=== PATIENT | male | born 1985 | race African-American/Black ===

== ENCOUNTER 2016-08-02 11:46 | Emergency (ER) | payer OTHER ==
[~2016-08-02] VITALS: Ht 180.3 cm; Wt 95.2 kg
[2016-08-02 15:28] VITALS: BP 128/84
== END 2016-08-02 15:28 | disposition home or self-care (01) ==
LOC: ED 11:46
DX: J45.901 Unspecified asthma with (acute) exacerbation (principal); J20.9 Acute bronchitis, unspecified
CPT/HCPCS: J7512; J7613

== ENCOUNTER 2016-09-10 12:12 | Emergency (ER) | payer OTHER ==
[2016-09-10 17:14] LABS: BASOPHIL % 0.7 % (0-2); PLATELET COUNT 225 x10^3mcL (130-400); RED CELL DISTRIBUTION WIDTH 13.6 % (11.5-14.5)
[2016-09-10 17:28] LABS: CALCIUM 9.3 mg/dL (8.5-10.1); CARBON DIOXIDE 26.6 mmol/L (21-32); CHLORIDE SERUM 101 mmol/L (98-107); CREATININE SERUM 1.1 mg/dL (0.7-1.3); GFR1 > 60 mL/min; GLUCOSE SERUM 78 mg/dL (74-106); POTASSIUM SERUM 3.9 mmol/L (3.5-5.1); SODIUM SERUM 139 mmol/L (136-145)
[2016-09-10 17:32] LABS: ALBUMIN 4.3 g/dL (3.4-5.0); ALKALINE PHOSPHATASE 66 U/L (46-116); ALT/SGPT 41 U/L (16-63); AST/SGOT 25 U/L (15-37); BILIRUBIN TOTAL 0.4 mg/dL (0.20-1.00); MAGNESIUM 2.1 mg/dL (1.8-2.4); PHOSPHOROUS 2.3 mg/dL (2.5-4.9); TOTAL PROTEIN, SERUM 7.6 g/dL (6.4-8.2)
[2016-09-10 17:34] LABS: microscopic required? YES; urine erythrocyte NEGATIVE (NEGATIVE)
[2016-09-10 20:31] VITALS: BP 148/91
== END 2016-09-10 20:31 | disposition left against medical advice (07) ==
LOC: ED 12:12
PROVIDERS: Emergency Medicine
DX: R10.30 Lower abdominal pain, unspecified (principal); R07.9 Chest pain, unspecified; R11.0 Nausea; J45.909 Unspecified asthma, uncomplicated
CPT/HCPCS: 36415; 76770; 87046; 87046-59; Q0092

== ENCOUNTER 2017-08-14 14:37 | Emergency (ER) | payer OTHER | END 2017-08-14 14:45 | disposition left against medical advice (07) | LOC: ED 14:37 | DX: Z53.21 Procedure and treatment not carried out due to patient leaving prior to being seen by health care provider (principal) ==

== ENCOUNTER 2017-09-16 13:40 | Emergency (ER) | payer OTHER ==
[~2017-09-16] VITALS: Ht 172.7 cm; Wt 86.2 kg
[2017-09-16 13:43] VITALS: Ht 172.7 cm; Wt 86.2 kg
[2017-09-16 15:46] VITALS: BP 138/88
== END 2017-09-16 15:46 | disposition other institution (70) ==
LOC: ED 13:40
DX: R06.4 Hyperventilation (principal); F12.10 Cannabis abuse, uncomplicated; J45.909 Unspecified asthma, uncomplicated; F41.9 Anxiety disorder, unspecified